=== PATIENT | female | born 1950 | race Caucasian/White ===

== ENCOUNTER → 2021-09-10 | Outpatient (CLI) | payer MEDICARE, OTHER ==
[~2021-09-10] MED LIST: ACETAMINOPHEN-1 EAC1 PO; ALEVE220 MG PO; CIPRO250 M1 PO; HYDROCHLOROTH12.5 M1; LISINOPRIL20 MG PO; MEDROLDOSEPACK PO
== END ==
LOC: M.RAD 06:54
PROVIDERS: ATTEND Internal Medicine Geriatric Medicine
DX: Z12.31 Encounter for screening mammogram for malignant neoplasm of breast (principal)